=== PATIENT | male | born 1995 | race Caucasian/White ===

== ENCOUNTER 2024-08-10 13:43 | Emergency (ER) | payer SELFPAY ==
[2024-08-10] MEDS ORDERED: Meclizine HCl 25 MG TAB ONE (14:35)
[2024-08-10 15:26] LABS: #Basophils 0.06 10x3/uL (0.0-0.2); #Eosinophils 0.19 10x3/uL (0.0-0.5); #Monocytes 0.88 10x3/uL (0.0-1.1); #Neutrophils 12.12 10x3/uL (1.5-8.4); %Basophils 0.4 % (0.0-2.0); %Eosinophils 1.2 % (0.0-6.0); %Lymphocytes 15.3 % (18.0-47.0); %Monocytes 5.6 % (0.0-10.0); Hematocrit 43.6 % (38.8-50.0); Hemoglobin 14.5 g/dL (13.5-17.5); Mean Corpuscular HGB CONC 33.3 g/dL (32.0-36.0); Mean Corpuscular Hemoglobin 28.5 pg (27.0-33.0); Mean Corpuscular Volume 85.8 fL (81.2-95.1); Mean Platelet Volume 11.6 fL (7.4-10.4); Platelet Count 247 10x3/uL (150-450); RBC Distribution Width 13.1 % (11.5-14.5); Red Blood Cell (RBC) Count 5.08 10x6/uL (4.32-5.72); White Blood Cell (WBC) Count 15.7 10x3/uL (3.5-10.5)
[2024-08-10 15:45] LABS: ALT (SGPT) 52 U/L (8-55); AST (SGOT) 23 U/L (5-34); Albumin 4.2 g/dL (3.5-5.0); Alkaline Phosphatase 91 U/L (40-110); Anion Gap 12 mmol/L (10-20); BUN (Urea Nitrogen) 10 mg/dL (8.9-20.6); Bilirubin, Total 0.3 mg/dL (0.2-1.2); Calc. Creatinine Clearance 0 mL/min (70-130); Calcium 10.2 mg/dL (7.8-10.44); Carbon Dioxide 25 mmol/L (22-29); Chloride 106 mmol/L (98-107); Estimated GFR 126; Globulin 3.1 g/dL (2.4-3.5); Glucose 75 mg/dL (70-105); Magnesium 1.9 mg/dL (1.6-2.6); Potassium 4.2 mmol/L (3.5-5.1); Protein, Total 7.3 g/dL (6.0-8.3); Sodium 139 mmol/L (136-145)
[2024-08-10 15:47] LABS: Troponin I Less than 0.010 ng/mL (< 0.028)
== END 2024-08-10 16:49 | disposition home or self-care (01) ==
LOC: CSHERS 13:43
DX: R42 Dizziness and giddiness (principal); D72.829 Elevated white blood cell count, unspecified; R29.700 NIHSS score 0; F17.210 Nicotine dependence, cigarettes, uncomplicated
CPT/HCPCS: 70450; 80053; 83735; 84443; 84484; 85025; 93005

== ENCOUNTER 2025-07-06 01:07 | Emergency (ER) | payer SELFPAY ==
[2025-07-06] MEDS ORDERED: Dexamethasone 10 MG/ML VIAL ONE (01:17)
== END 2025-07-06 02:05 | disposition home or self-care (01) ==
LOC: CSHERS 01:07
DX: J06.9 Acute upper respiratory infection, unspecified (principal); F17.210 Nicotine dependence, cigarettes, uncomplicated
CPT/HCPCS: 71045; 87081; 87428; 87430; 94760; 96374; J1100